=== PATIENT | female | born 1960 | race Caucasian/White ===

== ENCOUNTER → 2016-12-25 | Outpatient (CLI) | payer BC, OTHER | LOC: RAD 11:46 | DX: Z12.31 Encounter for screening mammogram for malignant neoplasm of breast (principal) ==

== ENCOUNTER → 2018-05-26 | Outpatient (CLI) | payer BC, OTHER | LOC: RAD 14:25 | DX: Z12.31 Encounter for screening mammogram for malignant neoplasm of breast (principal) ==

== ENCOUNTER → 2020-06-01 | Outpatient (CLI) | payer BC, OTHER | LOC: RAD 15:02 | PROVIDERS: ATTEND Obstetrics & Gynecology | DX: R07.9 Chest pain, unspecified (principal) ==

== ENCOUNTER → 2020-06-20 | Outpatient (CLI) | payer BC, OTHER | LOC: RAD 14:05 | PROVIDERS: ATTEND Obstetrics & Gynecology | DX: Z12.31 Encounter for screening mammogram for malignant neoplasm of breast (principal) ==

== ENCOUNTER → 2021-07-20 | Outpatient (CLI) | payer BC, OTHER | LOC: BC 15:00 | PROVIDERS: ATTEND Obstetrics & Gynecology | DX: Z12.31 Encounter for screening mammogram for malignant neoplasm of breast (principal) ==